=== PATIENT | female | born 1970 | race American Indian/Alaskan Native ===

== ENCOUNTER 2016-08-10 07:25 | Emergency (ER) | payer OTHER ==
[2016-08-10 07:29] VITALS: BP 131/72; PULSE 84; RESP 18; TEMP 98.8; O2SAT 100; BMI 28.8
[2016-08-10] MEDS ORDERED: Oxycodone/Acetaminophen 5/325 mg Tab PO STA (07:37)
--- NOTE | 2016-08-10 07:38 | ED PDOC ---
Arrival/HPI - General Chief Complaint: Trauma Time Seen by Provider: 08/10/16 07:34 Historian: Patient - History of Present Illness Narrative History of Present Illness (Text): 08/10/16 07:38 A 46 year old female presents to the emergency department complaining of right knee and hip pain after mechanical fall prior to arrival. Patient reports while taking out the trash her feet got tangled on a mop which caused her to fall and land on her right leg. Patient denies any other injuries, head trauma, headache , dizziness, neck pain, back pain, fever, nausea, vomiting, diarrhea, abdominal pain, chest pain, shortness of breath or any other complaints. PMD: Dr. Oneal Time/Duration: Prior to Arrival Symptom Course: Unchanged Quality: Other Context: Walking, Work Past Medical History - Provider Review Nursing Documentation Reviewed: Yes - Past History Past History: No Previous - Infectious Disease Hx of Infectious Diseases: None - Tetanus Immunization Tetanus Immunization: Unknown - Reproductive Menopause: No - Cardiac Hx Cardiac Disorders: No - Pulmonary Hx Respiratory Disorders: No - Neurological Hx Neurological Disorder: No - HEENT Hx HEENT Disorder: No - Renal Hx Renal Disorder: No - Endocrine/Metabolic Hx Endocrine Disorders: No - Hematological/Oncological Hx Blood Disorders: Yes Hx Anemia: Yes Hx Blood Transfusions: No - Integumentary Hx Dermatological Disorder: No - Musculoskeletal/Rheumatological Hx Musculoskeletal Disorders: Yes Hx Back Pain: Yes - Gastrointestinal Hx Gastrointestinal Disorders: No - Genitourinary/Gynecological Hx Genitourinary Disorders: No - Psychiatric Hx Psychophysiologic Disorder: No Hx Substance Use: No - Surgical History Hx Section: Yes (x 3) Hx Orthopedic Surgery: Yes (right ankle and rt thumb) - Anesthesia Hx Anesthesia: Yes Hx Anesthesia Reactions: Yes (panic attack) Hx Malignant Hyperthermia: No - Suicidal Assessment Feels Threatened In Home Enviroment: No Family/Social History - Physician Review Nursing Documentation Reviewed: Yes Family/Social History: No Known Family HX Smoking Status: Heavy Smoker > 10 Cigarettes Daily Hx Alcohol Use: Yes Frequency of alcohol use: Socially Hx Substance Use: No Hx Substance Use Treatment: No Allergies/Home Meds Allergies/Adverse Reactions: Allergies No Known Allergies Allergy (Verified 04/23/16 13:43) Home Medications: Home Meds Medication Instructions Recorded Confirmed Ibuprofen [Motrin Tab] 800 mg PO Q6H PRN 08/10/16 08/10/16 Review of Systems - Physician Review All systems were reviewed & negative as marked: Yes - Review of Systems Constitutional: absent: Fevers Respiratory: absent: SOB Cardiovascular: absent: Chest Pain Gastrointestinal: absent: Abdominal Pain, Diarrhea, Nausea, Vomiting Musculoskeletal: Other (Right knee and hip pain). absent: Back Pain, Neck Pain Neurological: absent: Headache, Dizziness Physical Exam Vital Signs Reviewed: Yes Vital Signs Temp Pulse Resp BP Pulse Ox 08/10/16 07:26 98.8 F 84 18 131/72 100 Temperature: Afebrile Blood Pressure: Normal Pulse: Regular Respiratory Rate: Normal Appearance: Positive for: Well-Appearing, Non-Toxic, Comfortable Pain Distress: None Mental Status: Positive for: Alert and Oriented X 3 - Systems Exam Head: Present: Atraumatic, Normocephalic Pupils: Present: PERRL Extroacular Muscles: Present: EOMI Conjunctiva: Present: Normal Mouth: Present: Moist Mucous Membranes Neck: Present: Normal Range of Motion Respiratory/Chest: Present: Clear to Auscultation, Good Air Exchange. No: Respiratory Distress, Accessory Muscle Use Cardiovascular: Present: Regular Rate and Rhythm, Normal S1, S2. No: Murmurs Abdomen: Present: Normal Bowel Sounds. No: Tenderness, Distention, Peritoneal Signs Back: Present: Normal Inspection Upper Extremity: Present: Normal Inspection. No: Cyanosis, Edema Lower Extremity: Present: NORMAL PULSES, Normal ROM, Tenderness (Right knee and hip tenderness to palpation), Swelling (Right knee and hip swelling), Neurovascularly Intact. No: Edema, CALF TENDERNESS, Erythema, Deformity, Temperature Abnormalties Neurological: Present: GCS=15, CN II-XII Intact, Speech Normal Skin: Present: Warm, Dry, Normal Color. No: Rashes Psychiatric: Present: Alert, Oriented x 3, Normal Insight, Normal Concentration Medical Decision Making ED Course and Treatment: 08/10/16 07:38 Impression: A 46 year old female with right knee and hip pain after mechanical fall Plan: -- Right femur xray -- Right hip xray -- Right knee xray -- Percocet -- Reassess and disposition Progress Notes: Report Date : 08/10/2016 09:41:34 PROCEDURE: Right Hip and pelvis Radiographs. Dictator : Amrik Boston MD IMPRESSION: Negative study Report Date : 08/10/2016 09:42:28 PROCEDURE: Right Femur Radiographs. Dictator : Amrik Boston MD IMPRESSION: Unremarkable radiographs of the right femur. Report Date : 08/10/2016 09:42:49 PROCEDURE: Right Knee Radiographs. Dictator : Amrik Boston MD IMPRESSION: Normal radiographs of the right knee. - RAD Interpretation Radiology Orders: 08/10/16 07:37 FEMUR MIN 2 VIEWS RT [RAD] Stat HIP MIN 2V W/ PELVIS RT [RAD] Stat KNEE RIGHT 2 VIEWS (AP & LAT) [RAD] Stat - Medication Orders Current Medication Orders: Discontinued Medications Oxycodone/Acetaminophen (Percocet 5/325 Mg Tab) 2 tab PO STAT STA Stop: 08/10/16 07:38 Last Admin: 08/10/16 07:50 Dose: 2 TAB - Scribe Statement The provider has reviewed the documentation as recorded by the Scribe Yvonne Ribera Provider Scribe Attestation: All medical record entries made by the Scribe were at my direction and personally dictated by me. I have reviewed the chart and agree that the record accurately reflects my personal performance of the history, physical exam, medical decision making, and the department course for this patient. I have also personally directed, reviewed, and agree with the discharge instructions and disposition. Disposition/Present on Arrival - Present on Arrival Any Indicators Present on Arrival: No History of DVT/PE: No History of Uncontrolled Diabetes: No Urinary Catheter: No History of Decub. Ulcer: No History Surgical Site Infection Following: None - Disposition Have Diagnosis and Disposition been Completed?: Yes Diagnosis: Hip sprain, Knee sprain Disposition: HOME/ ROUTINE Disposition Time: 09:40 Patient Problems: Current Active Problems Problem Status Diagnosed Hip sprain Acute Knee sprain Acute Condition: STABLE Discharge Instructions (ExitCare): Knee Sprain (ED), Hip Sprain (ED) Additional Instructions: please follow up with pmd/clinic and specialist. return to er with worsening symptoms or concerns. Prescriptions: Naproxen 500 mg PO BID PRN #14 tab PRN Reason: Pain, Mild (1-3) Referrals: Bronwyn Oneal MD [Primary Care Provider] - Follow up with primary Amrik Rose DO [Staff Provider] - Follow up with primary
--- NOTE | 2016-08-10 09:43 | RAD ---
PROCEDURE: Right Hip and pelvis Radiographs. HISTORY: trauma COMPARISON: None. FINDINGS: BONES: Normal. No fracture. JOINTS: Normal. SOFT TISSUES: Normal. OTHER FINDINGS: None. IMPRESSION: Negative study
--- NOTE | 2016-08-10 09:44 | RAD ---
PROCEDURE: Right Femur Radiographs. HISTORY: trauma COMPARISON: None. TECHNIQUE: AP and Lateral Radiographs of the right femur. FINDINGS: FEMUR: Normal. No fracture. SOFT TISSUES: Normal. OTHER FINDINGS: None. IMPRESSION: Unremarkable radiographs of the right femur.
--- NOTE | 2016-08-10 09:44 | RAD ---
PROCEDURE: Right Knee Radiographs. HISTORY: trauma COMPARISON: None. FINDINGS: BONES: Normal. No fracture. JOINTS: Normal. No osteoarthritis. JOINT EFFUSION: None. OTHER FINDINGS: None. IMPRESSION: Normal radiographs of the right knee.
== END 2016-08-10 09:57 | disposition home or self-care (01) ==
LOC: ED 07:25
DX: S73.101A Unspecified sprain of right hip, initial encounter (principal); S83.91XA Sprain of unspecified site of right knee, initial encounter; W01.0XXA Fall on same level from slipping, tripping and stumbling without subsequent striking against object, initial encounter; Y93.89 Activity, other specified; Y92.89 Other specified places as the place of occurrence of the external cause; Y99.0 Civilian activity done for income or pay

== ENCOUNTER 2016-09-27 08:24 | Emergency (ER) | payer OTHER ==
[2016-09-27 08:47] VITALS: TEMP 98.6; O2SAT 100; BMI 29.2
--- NOTE | 2016-09-27 09:27 | ED PDOC ---
Arrival/HPI - General Chief Complaint: Upper Extremity Problem/Injury Time Seen by Provider: 09/27/16 09:13 Historian: Patient - History of Present Illness Narrative History of Present Illness (Text): 09/27/16 09:23 46 year old female presents to the emergency department with right wrist pain since waking up this morning. 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 She states she iced it and took Ibuprofen with no relief. No other complaints. PMD: Dr. Oneal Time/Duration: 24 hours Symptom Onset: Sudden Symptom Course: Unchanged Associated Symptoms (Text): None Past Medical History - Provider Review Nursing Documentation Reviewed: Yes - Past History Past History: No Previous - Infectious Disease Hx of Infectious Diseases: None - Tetanus Immunization Tetanus Immunization: Unknown - Cardiac Hx Cardiac Disorders: No - Pulmonary Hx Respiratory Disorders: No - Neurological Hx Neurological Disorder: No - HEENT Hx HEENT Disorder: No - Renal Hx Renal Disorder: No - Endocrine/Metabolic Hx Endocrine Disorders: No - Hematological/Oncological Hx Blood Disorders: Yes Hx Anemia: Yes Hx Blood Transfusions: No - Integumentary Hx Dermatological Disorder: No - Musculoskeletal/Rheumatological Hx Musculoskeletal Disorders: Yes Hx Back Pain: Yes - Gastrointestinal Hx Gastrointestinal Disorders: No - Genitourinary/Gynecological Hx Genitourinary Disorders: No - Psychiatric Hx Psychophysiologic Disorder: No Hx Substance Use: No - Surgical History Hx Section: Yes (x 3) Hx Orthopedic Surgery: Yes (right ankle and rt thumb) - Anesthesia Hx Anesthesia: Yes Hx Anesthesia Reactions: Yes (panic attack) Hx Malignant Hyperthermia: No - Suicidal Assessment Feels Threatened In Home Enviroment: No Family/Social History - Physician Review Nursing Documentation Reviewed: Yes Family/Social History: Unknown Family HX Smoking Status: Heavy Smoker > 10 Cigarettes Daily Hx Alcohol Use: Yes Frequency of alcohol use: Socially Hx Substance Use: No Hx Substance Use Treatment: No Allergies/Home Meds Allergies/Adverse Reactions: Allergies No Known Allergies Allergy (Verified 09/27/16 08:46) Home Medications: Home Meds Medication Instructions Recorded Confirmed Ibuprofen [Motrin Tab] 800 mg PO Q6H PRN 08/10/16 09/27/16 Review of Systems - Review of Systems Musculoskeletal: Other (Right wrist pain) Neurological: absent: Headache, Dizziness Physical Exam Vital Signs Reviewed: Yes Vital Signs Temp Pulse Resp BP Pulse Ox 09/27/16 11:15 82 16 101/80 100 09/27/16 08:42 98.6 F 85 18 99/76 L 100 Temperature: Afebrile Blood Pressure: Normal Pulse: Regular Respiratory Rate: Normal Appearance: Positive for: Well-Appearing, Non-Toxic, Uncomfortable Pain Distress: Mild Mental Status: Positive for: Alert and Oriented X 3 - Systems Exam Upper Extremity: Present: Neurovascularly Intact, Other (Right wrist: Tenderness , Swelling. Right hand: Tenderness to 5th metacarpal, Decreased ROM secondary to pain. ) Neurological: Present: GCS=15, CN II-XII Intact, Speech Normal Skin: Present: Warm, Dry, Normal Color. No: Rashes Psychiatric: Present: Alert, Oriented x 3, Normal Insight, Normal Concentration Medical Decision Making ED Course and Treatment: Impression: 46 year old female presents to the emergency department with right wrist pain since waking up this morning. 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 X-ray Right Wrist Pit Furnace Melter: Amrik Boston MD IMPRESSION: Normal right wrist radiographs. Patient feels better. XRays negative. Placed patient in a velcro wrist splint. Advised her to follow up with her primary care doctor, continue treatment with Motrin and ice packs. - RAD Interpretation Radiology Orders: 09/27/16 09:22 HAND RIGHT 3 VIEWS [RAD] Stat WRIST, RIGHT 3 VIEWS [RAD] Stat - Medication Orders Current Medication Orders: Discontinued Medications Ibuprofen (Motrin Tab) 600 mg PO STAT STA Stop: 09/27/16 09:23 Last Admin: 09/27/16 09:29 Dose: 600 mg - Scribe Statement The provider has reviewed the documentation as recorded by the Kelly Monzon Provider Scribe Attestation: All medical record entries made by the Scribe were at my direction and personally dictated by me. I have reviewed the chart and agree that the record accurately reflects my personal performance of the history, physical exam, medical decision making, and the department course for this patient. I have also personally directed, reviewed, and agree with the discharge instructions and disposition. Disposition/Present on Arrival - Present on Arrival Any Indicators Present on Arrival: No History of DVT/PE: No History of Uncontrolled Diabetes: No Urinary Catheter: No History of Decub. Ulcer: No History Surgical Site Infection Following: None - Disposition Have Diagnosis and Disposition been Completed?: Yes Diagnosis: Tendonitis Disposition: HOME/ ROUTINE Disposition Time: 11:20 Patient Plan: Discharge Condition: IMPROVED Discharge Instructions (ExitCare): Tendinitis (ED) Additional Instructions: Ms Hu, thank you for letting us take care of you today. Your provider was Dr. Yuan. You were treated for Wrist Tendonitis. The emergency medical care you received today was directed at your acute symptoms. If you were prescribed any medication, please fill it and take as directed. It may take several days for your symptoms to resolve. Return to the Emergency Department if your symptoms worsen, do not improve, or if you have any other problems. Please contact your doctor or call one of the physicians/clinics you have been referred to that are listed on the Patient Visit Information form that is included in your discharge packet. Bring any paperwork you were given at discharge with you along with any medications you are taking to your follow up visit. Our treatment cannot replace ongoing medical care by a primary care provider (PCP) outside of the emergency department. Thank you for allowing the [id number] team to be part of your care today. If you had an X-Ray or CT scan: A Radiologist will review the ED reading if any change in treatment is needed we will contact you. If you had a blood, urine, or wound culture: It will take several days for the results, if any change in treatment is needed we will contact you. If you had an STI test: It will take 48 hours for the results. Please call after 1 week if you have not heard back. Prescriptions: Cyclobenzaprine [Flexeril] 5 mg PO Q8 PRN #10 tab PRN Reason: Muscle Spasm Ibuprofen [Motrin] 600 mg PO Q6 PRN #30 tab PRN Reason: Pain, Moderate (4-7) Referrals: Erma Oneal MD [Primary Care Provider] - Follow up with primary Forms: [employer] ([place]), WORK NOTE
--- NOTE | 2016-09-27 10:03 | RAD ---
PROCEDURE: Right Hand Radiographs. HISTORY: pain r/o fx COMPARISON: None. FINDINGS: BONES: Normal. No fracture. JOINTS: Normal. No osteoarthritic changes. SOFT TISSUES: Normal. OTHER FINDINGS: None. IMPRESSION: Normal right hand radiographs.
--- NOTE | 2016-09-27 10:17 | RAD ---
PROCEDURE: Right Wrist Radiographs. HISTORY: pain r/o fx COMPARISON: None. FINDINGS: BONES: Normal. No fracture. JOINTS: Normal. No dislocation. SOFT TISSUES: Normal. OTHER FINDINGS: None. IMPRESSION: Normal right wrist radiographs.
[2016-09-27 11:16] VITALS: BP 101/80; PULSE 82; RESP 16
== END 2016-09-27 11:20 | disposition home or self-care (01) ==
LOC: ED 08:24
DX: M77.9 Enthesopathy, unspecified (principal)

== ENCOUNTER 2017-01-08 12:31 | Emergency (ER) | payer OTHER ==
[2017-01-08 12:31] VITALS: BMI 29.2
[2017-01-08 12:38] VITALS: RESP 18; TEMP 98.3; O2SAT 99
--- NOTE | 2017-01-08 12:47 | ED PDOC ---
Arrival/HPI - General Chief Complaint: Back Pain Time Seen by Provider: 01/08/17 12:37 Historian: Patient - History of Present Illness Narrative History of Present Illness (Text): The patient is a 46yo female, presents to the Emergency department for evaluation of left lower back pain, worsening since this morning. The patient reports she had a fall last year after which she was informed of two pinched nerves in her back; patient states she has had lower back pain for the past year but has been able to manage the pain by taking motrin as needed. 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 Patient denies any urinary or bowel incontinence/retention, numbness or tingling. She offers no additional medical complaints. Time/Duration: 24 hours Symptom Onset: Gradual Symptom Course: Worsening Past Medical History - Provider Review Nursing Documentation Reviewed: Yes - Past History Past History: No Previous - Infectious Disease Hx of Infectious Diseases: None - Tetanus Immunization Tetanus Immunization: Unknown - Cardiac Hx Cardiac Disorders: No - Pulmonary Hx Respiratory Disorders: No - Neurological Hx Neurological Disorder: No - HEENT Hx HEENT Disorder: No - Renal Hx Renal Disorder: No - Endocrine/Metabolic Hx Endocrine Disorders: No - Hematological/Oncological Hx Blood Disorders: Yes Hx Anemia: Yes Hx Blood Transfusions: No - Integumentary Hx Dermatological Disorder: No - Musculoskeletal/Rheumatological Hx Musculoskeletal Disorders: Yes Hx Back Pain: Yes - Gastrointestinal Hx Gastrointestinal Disorders: No - Genitourinary/Gynecological Hx Genitourinary Disorders: No - Psychiatric Hx Psychophysiologic Disorder: No Hx Substance Use: No - Surgical History Hx Section: Yes (x 3) Hx Orthopedic Surgery: Yes (right ankle and rt thumb) - Anesthesia Hx Anesthesia: Yes Hx Anesthesia Reactions: Yes (panic attack) Hx Malignant Hyperthermia: No - Suicidal Assessment Feels Threatened In Home Enviroment: No Family/Social History - Physician Review Nursing Documentation Reviewed: Yes Family/Social History: No Known Family HX Smoking Status: Heavy Smoker > 10 Cigarettes Daily Hx Alcohol Use: No Hx Substance Use: No Hx Substance Use Treatment: No Allergies/Home Meds Allergies/Adverse Reactions: Allergies No Known Allergies Allergy (Verified 01/08/17 12:37) Home Medications: Home Meds Medication Instructions Recorded Confirmed Ibuprofen [Motrin Tab] 800 mg PO Q6H PRN 08/10/16 01/08/17 Review of Systems - Physician Review All systems were reviewed & negative as marked: Yes - Review of Systems Constitutional: Normal. absent: Fevers Eyes: Normal Respiratory: Normal Cardiovascular: Normal. absent: Chest Pain Musculoskeletal: Back Pain (left lower back), Other (left leg pain) Neurological: Normal Psychiatric: Normal Physical Exam - Physical Exam Narrative Physical Exam (Text): Constitutional: Uncomfortable. Head: Normocephalic. Atraumatic. Eyes: PERRL. Neck: Supple. Back: Left lumbar tenderness, no midline tenderness. Musculoskeletal: No tenderness or swelling of extremities. Neurologic: Alert, no focal deficit. 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 Patient made aware of this. Will prescribe Robaxin, f/u with primary care. - Medication Orders Current Medication Orders: Discontinued Medications Tramadol HCl (Ultram) 50 mg PO STAT STA Stop: 01/08/17 12:55 Last Admin: 01/08/17 13:04 Dose: 50 mg [facility] Pain Assessment Document 01/08/17 13:04 EQ (Rec: 01/08/17 13:04 EQ [facility] [id number]) Pain Reassessment Is this a pain reassessment? No Sleep Is patient sleeping during reassessment? No Presence of Pain Presence of Pain Yes - Scribe Statement The provider has reviewed the documentation as recorded by the Kelly Caldera Provider Attestation: All medical record entries made by the Kelly were at my direction and personally dictated by me. I have reviewed the chart and agree that the record accurately reflects my personal performance of the history, physical exam, medical decision making, and the department course for this patient. I have also personally directed, reviewed, and agree with the discharge instructions and disposition. Disposition/Present on Arrival - Present on Arrival Any Indicators Present on Arrival: No History of DVT/PE: No History of Uncontrolled Diabetes: No Urinary Catheter: No History of Decub. Ulcer: No History Surgical Site Infection Following: None - Disposition Have Diagnosis and Disposition been Completed?: Yes Diagnosis: Back pain Disposition: HOME/ ROUTINE Disposition Time: 13:34 Patient Plan: Discharge Condition: STABLE Discharge Instructions (ExitCare): Chronic Back Pain (ED) Prescriptions: Methocarbamol [Robaxin-750] 1 tab PO Q8H #12 tablet Referrals: Bronwyn Oneal MD [Primary Care Provider] - Follow up with primary Forms: [employer] (Bengali)
[2017-01-08 13:40] VITALS: BP 121/79; PULSE 89
== END 2017-01-08 13:39 | disposition home or self-care (01) ==
LOC: ED 12:31
DX: M54.5 Low back pain (principal)

== ENCOUNTER 2017-05-21 10:16 | Observation (INO) | payer OTHER ==
[2017-05-21] MEDS ORDERED: Sodium Chloride 0.9% 1,000 ML IV STA ×2 (10:48→15:09)
--- NOTE | 2017-05-21 11:29 | ED PDOC ---
Arrival/HPI - General Chief Complaint: Abdominal Pain Time Seen by Provider: 05/21/17 10:33 Historian: Patient - History of Present Illness Narrative History of Present Illness (Text): 05/21/17 11:19 47-year-old female presents today with a sudden onset of epigastric and periumbilical abdominal pain that started about 45 minutes prior to arrival. Patient states the pain is sharp and stabbing and located in the midabdomen. Patient states the pain is associated with nausea and vomiting. Denies diarrhea. Patient denies chest pain or shortness of breath. Patient states she has a history of chronic back pain so she is currently having some back pain. Patient denies radiation of the pain. She denies urinary symptoms. Patient states she is currently menstruating. Patient states her granddaughter was sick yesterday. Patient denies cough. No other complaints. Time/Duration: Other (45 minutes) Symptom Onset: Sudden Symptom Course: Unchanged Quality: Stabbing Severity Level: 9 Past Medical History - Provider Review Nursing Documentation Reviewed: Yes - Travel History Have you recently traveled outside [place] w/in the past 3 mons?: No - Past History Past History: No Previous - Infectious Disease Hx of Infectious Diseases: None - Tetanus Immunization Tetanus Immunization: Unknown - Reproductive Menopause: No - Cardiac Hx Cardiac Disorders: No - Pulmonary Hx Respiratory Disorders: No - Neurological Hx Neurological Disorder: No - HEENT Hx HEENT Disorder: No - Renal Hx Renal Disorder: No - Endocrine/Metabolic Hx Endocrine Disorders: No - Hematological/Oncological Hx Blood Disorders: Yes Hx Anemia: Yes Hx Blood Transfusions: No - Integumentary Hx Dermatological Disorder: No - Musculoskeletal/Rheumatological Hx Musculoskeletal Disorders: Yes Hx Back Pain: Yes - Gastrointestinal Hx Gastrointestinal Disorders: No - Genitourinary/Gynecological Hx Genitourinary Disorders: No - Psychiatric Hx Psychophysiologic Disorder: No Hx Substance Use: No - Surgical History Hx Section: Yes (x 3) Hx Orthopedic Surgery: Yes (right ankle and rt thumb) - Anesthesia Hx Anesthesia: Yes Hx Anesthesia Reactions: Yes (panic attack) Hx Malignant Hyperthermia: No - Suicidal Assessment Feels Threatened In Home Enviroment: No Family/Social History - Physician Review Nursing Documentation Reviewed: Yes Family/Social History: Unknown Family HX Smoking Status: Heavy Smoker > 10 Cigarettes Daily Hx Alcohol Use: No Hx Substance Use: No Hx Substance Use Treatment: No Allergies/Home Meds Allergies/Adverse Reactions: Allergies No Known Allergies Allergy (Verified 05/21/17 10:25) Home Medications: Home Meds Medication Instructions Recorded Confirmed Ibuprofen [Motrin Tab] 800 mg PO Q6H PRN 08/10/16 05/21/17 Review of Systems - Review of Systems Constitutional: absent: Fatigue, Fevers Respiratory: absent: SOB, Cough Cardiovascular: absent: Chest Pain, Palpitations Gastrointestinal: Abdominal Pain, Nausea, Vomiting. absent: Constipation, Diarrhea Genitourinary Female: absent: Dysuria, Frequency, Hematuria Musculoskeletal: absent: Arthralgias, Neck Pain Skin: absent: Rash, Pruritis Neurological: absent: Headache, Dizziness Psychiatric: absent: Anxiety, Depression, Suicidal Ideation Physical Exam Vital Signs Reviewed: Yes Vital Signs Temp Pulse Resp BP Pulse Ox 05/21/17 15:13 106 H 18 111/49 L 99 05/21/17 14:33 79 18 155/65 H 96 05/21/17 11:50 97.8 F 85 18 159/67 H 96 05/21/17 11:11 97.6 F 91 H 18 114/73 100 05/21/17 10:23 98.2 F 82 18 129/83 98 Temperature: Afebrile Blood Pressure: Normal Pulse: Regular Respiratory Rate: Normal Appearance: Positive for: Well-Appearing, Non-Toxic Pain Distress: Moderate Mental Status: Positive for: Alert and Oriented X 3 - Systems Exam Head: Present: Atraumatic Mouth: Present: Moist Mucous Membranes Neck: Present: Normal Range of Motion Respiratory/Chest: Present: Clear to Auscultation, Good Air Exchange. No: Respiratory Distress, Accessory Muscle Use Cardiovascular: Present: Regular Rate and Rhythm, Normal S1, S2. No: Murmurs Abdomen: Present: Tenderness (+ epigastric and periumbilical abdominal tenderness), Normal Bowel Sounds. No: Distention, Peritoneal Signs Back: Present: Normal Inspection. No: CVA Tenderness, Midline Tenderness, Paraspinal Tenderness Upper Extremity: Present: Normal ROM Lower Extremity: Present: Normal ROM Neurological: Present: GCS=15, Speech Normal Skin: Present: Warm, Dry, Normal Color. No: Rashes Psychiatric: Present: Alert, Oriented x 3 Medical Decision Making ED Course and Treatment: 05/21/17 11:54 Patient is nontoxic well appearing with stable vital signs presenting with severe abdominal pain with nausea and vomiting. pt with multiple episodes of vomiting c/o severe mid abdominal pain and back pain pt given zofran and pepcid. pt given 1L NS iv bolus. CBC wnl CMP cl; 11 Amylase 127 Lipase wnl Urinalysis: + blood, + nitrates EKG: NSR at 81 b/m no st elevations. qtc 420. CAT scan: FINDINGS: CT ANGIOGRAPHY OF THE CHEST WITH & WITHOUT CONTRAST: AORTA (CHEST AND ABDOMEN): The thoracic and abdominal aorta are unremarkable, without aneurysm, dissection or rupture. No intramural thrombus identified in the thoracic aorta on the non-contrast ct of the chest. The celiac axis, superior mesenteric artery, inferior mesenteric artery and the renal arteries are widely patent. The pelvic arteries are unremarkable. LUNGS: Clear. No nodule, mass or consolidation. MEDIASTINUM: Unremarkable. Normal caliber aorta and pulmonary arterial trunk. No aortic dissection. Normal size heart. LYMPH NODES: Unremarkable. PLEURA: Unremarkable. No pneumothorax. No pleural fluid. BONES: Unremarkable. OTHER FINDINGS: None. CT ANGIOGRAPHY OF THE ABDOMEN AND PELVIS WITH CONTRAST: LIVER: Nonspecific 1.2 cm low-density lesion at dome of left hepatic lobe, medial segment. No other hepatic mass. Nodular dystrophic calcification either dome of right hepatic lobe or pleural-based at right lung base. No biliary dilatation. Smooth contour. GALLBLADDER AND BILE DUCTS: Unremarkable. PANCREAS: Unremarkable. No gross lesion or ductal dilatation. SPLEEN: Unremarkable. ADRENALS: Unremarkable. No mass. KIDNEYS AND URETERS: Bilateral low-density renal masses consistent with renal cysts. Right upper pole, 1.9 cm. Right lower pole, 4.2 cm. Left upper pole, 2.4 cm. Left lower pole, 3.8 cm and 2.6 cm. These have all increased slightly in size since prior abdominal pelvic CT examination of 02/05/2013. . No calculus. No hydronephrosis. VASCULATURE: Unremarkable. No aortic aneurysm. STOMACH AND BOWEL: Unremarkable. No obstruction. No gross mural thickening. APPENDIX: Normal appendix. PERITONEUM: Unremarkable. No free fluid. No free air. LYMPH NODES: Unremarkable. No enlarged lymph nodes. BLADDER: Unremarkable. REPRODUCTIVE: Normal uterus BONES: No acute fracture. OTHER FINDINGS: None. IMPRESSION: No evidence of thoracic or abdominal aortic dissection or aneurysm. No acute findings. Incidental bilateral renal cysts. Nonspecific 1.2 cm low-density lesion in the dome of the left hepatic lobe. Patient reassessment: pt with continued nausea/vomiting despite medications; additional dose of zofran given. pt now c/o returned abd pain; morphine given. after administration of morphine; pt c/o shortness of breath, not feeling right and feeling of throat closing pt given solumedrol and benadryl 50mg IV. pt reassessment; lungs cta bilaterally, airway patient; breathing has improved ; pain has improved, pt with RUQ tenderness. nausea remains. Discussed all results with patient in depth. pt has vomited 6-7 in ER despite multiple doses of nausea medications; will admit observational status for intractable vomiting, abdominal pain. case discussed with dr. Bette Nguyen; accepts observational status admission to med/ surg. all aspects of this case were discussed the attending of record. Impression: intractable vomiting, abdominal pain admit observational status to med/surg - Lab Interpretations Lab Results: 05/21/17 11:40 05/21/17 13:00 Lab Results 05/21/17 13:40: Influenza Typ A,B (EIA) Negative for flu a/b 05/21/17 13:00: Sodium 143, Potassium 4.3, Chloride 111 H, Carbon Dioxide 25, Anion Gap 12, BUN 19, Creatinine 0.7, Est GFR ( Amer) > 60, Est GFR (Non- Af Amer) > 60, Random Glucose 92, Calcium 9.7, Total Bilirubin 0.7, AST 21, ALT 26, Alkaline Phosphatase 65, Total Protein 7.1, Albumin 3.9, Globulin 3.2, Albumin/Globulin Ratio 1.2, Amylase 127 H, Lipase 215 05/21/17 11:40: WBC 10.3, RBC 4.34, Hgb 12.2, Hct 37.5, MCV 86.4, MCH 28.1, MCHC 32.5, RDW 14.2, Plt Count 303, MPV 10.2, Gran % 83.4 H, Lymph % (Auto) 13.2 L, [place] % (Auto) 2.7, Eos % (Auto) 0.6 L, Baso % (Auto) 0.1, Gran # 8.58 H , Lymph # 1.4, [place] # 0.3, Eos # 0.1, Baso # 0.01 05/21/17 11:34: Urine Color Light red, Urine Appearance Cloudy, Urine pH 6.0, Ur Specific Linch >= 1.030, Urine Protein 100 H, Urine Glucose (UA) Negative, Urine Ketones Trace H, Urine Blood Large H, Urine Nitrate Positive H, Urine Bilirubin Small H, Urine Urobilinogen 0.2, Ur Leukocyte Esterase Negative, Urine RBC Tntc, Urine WBC 0 - 2, Ur Epithelial Cells 6 - 8, Urine Bacteria Mod - RAD Interpretation Radiology Orders: 05/21/17 10:48 ANGIOGRAPHY DISECTION PROTOCOL [CT] Stat CHEST PORTABLE [RAD] Stat - Medication Orders Current Medication Orders: Discontinued Medications Diphenhydramine HCl (Benadryl) 50 mg IVP STAT STA Stop: 05/21/17 15:31 Last Admin: 05/21/17 15:37 Dose: 50 mg IVP Administration Document 05/21/17 15:37 OCS (Rec: 05/21/17 15:37 [id number]) Charges for Administration # of IVP Administrations 1 Famotidine (Pepcid) 20 mg IVP STAT STA Stop: 05/21/17 11:20 Last Admin: 05/21/17 11:29 Dose: 20 mg IVP Administration Document 05/21/17 11:29 OCS (Rec: 05/21/17 11:29 [facility]CS [facility] [place] [id number]) Charges for Administration # of IVP Administrations 1 Sodium Chloride (Sodium Chloride 0.9%) 1,000 mls @ 999 mls/hr IV .Q1H1M STA Stop: 05/21/17 11:48 Last Admin: 05/21/17 11:29 Dose: 999 mls/hr eMAR Start Stop Document 05/21/17 11:29 OCS (Rec: 05/21/17 11:30 [id number]) Intravenous Solution Start Date 05/21/17 Start Time 11:29 End Date 05/21/17 End time 12:00 Total Infusion Time 31 Sodium Chloride (Sodium Chloride 0.9%) 1,000 mls @ 999 mls/hr IV .Q1H1M STA Stop: 05/21/17 16:09 Last Admin: 05/21/17 15:38 Dose: 999 mls/hr eMAR Start Stop Document 05/21/17 15:38 OCS (Rec: 05/21/17 15:38 [id number]) Intravenous Solution Start Date 05/21/17 Start Time 15:38 End Date 05/21/17 End time 16:39 Total Infusion Time 61 Methylprednisolone (Solu-Medrol) 125 mg IVP STAT STA Stop: 05/21/17 15:31 Last Admin: 05/21/17 15:37 Dose: Morphine Sulfate (Morphine) 4 mg IVP STAT STA Stop: 05/21/17 14:38 Last Admin: 05/21/17 15:05 Dose: 4 mg MAR Pain Assessment Document 05/21/17 15:05 OCS (Rec: 05/21/17 15:05 OCS [facility] [place] [id number]) Pain Reassessment Is this a pain reassessment? Yes Sleep Is patient sleeping during reassessment? No Presence of Pain Presence of Pain Yes Location Pain Location Body Site Abdomen Description Description Constant Intensity of Pain at present 8 Aggravating Factors ADL's IVP Administration Document 05/21/17 15:05 OCS (Rec: 05/21/17 15:05 OCS [facility] [place] [id number]) Charges for Administration # of IVP Administrations 1 Ondansetron HCl (Zofran Inj) 4 mg IVP STAT STA Stop: 05/21/17 10:49 Last Admin: 05/21/17 11:29 Dose: 4 mg IVP Administration Document 05/21/17 11:29 OCS (Rec: 05/21/17 11:29 OCS [facility] [id number]) Charges for Administration # of IVP Administrations 1 Ondansetron HCl (Zofran Inj) 4 mg IVP STAT STA Stop: 05/21/17 14:38 Last Admin: 05/21/17 15:05 Dose: 4 mg IVP Administration Document 05/21/17 15:05 OCS (Rec: 05/21/17 15:05 [id number]) Charges for Administration # of IVP Administrations 1 Disposition/Present on Arrival - Present on Arrival Any Indicators Present on Arrival: No History of DVT/PE: No History of Uncontrolled Diabetes: No Urinary Catheter: No History of Decub. Ulcer: No History Surgical Site Infection Following: None - Disposition Have Diagnosis and Disposition been Completed?: Yes Diagnosis: Intractable vomiting, Abdominal pain Disposition: HOSPITALIZED Disposition Time: 17:18 Patient Plan: Observation Patient Problems: Current Active Problems Problem Status Onset Abdominal pain Acute Intractable vomiting Acute Condition: FAIR Referrals: Bronwyn Oneal MD [Primary Care Provider] - Follow up with primary Forms: BDA (Syrian)
[2017-05-21 11:46] LABS: URINE BILIRUBIN SMALL (NEGATIVE); URINE BLOOD LARGE (NEGATIVE); URINE GLUCOSE (UA) NEGATIVE (NEGATIVE); URINE LEUKOCYTE ESTERASE NEGATIVE Leu/uL (NEGATIVE); URINE NITRATE POSITIVE (NEGATIVE); URINE PROTEIN 100 mg/dL (<30 mg/dL); URINE UROBILINOGEN 0.2 E.U./dL (<1 E.U./dL)
[2017-05-21 11:47] LABS: URINE APPEARANCE CLOUDY (CLEAR); URINE COLOR LIGHT RED (YELLOW)
[2017-05-21 11:51] LABS: BASO # 0.01 K/mm3 (0.0-2.0); BASO % 0.1 % (0.0-3.0); EOS # 0.1 (0.0-0.7); EOS % 0.6 % (1.5-5.0); GRAN # 8.58 (1.4-6.5); GRAN % 83.4 % (50.0-68.0); HEMOGLOBIN 12.2 g/dL (12.0-16.0); LYMPH # 1.4 (1.2-3.4); LYMPH % 13.2 % (22.0-35.0); MEAN CELL VOLUME 86.4 fl (80.0-105.0); MEAN CORPUSCULAR HEMOGLOBIN 28.1 pg (25.0-35.0); MEAN CORPUSCULAR HGB CONC 32.5 g/dl (31.0-37.0); MEAN PLATELET VOLUME 10.2 fl (7.0-11.0); MONO # 0.3 (0.1-0.6); MONO % 2.7 % (1.0-6.0); RBC 4.34 10^6/uL (3.5-6.1); RED CELL DISTRIBUTION WIDTH 14.2 % (11.5-14.5); WHITE BLOOD COUNT 10.3 10^3/ul (4.5-11.0)
[2017-05-21 11:55] LABS: URINE BACTERIA MOD (NEG); URINE RBC TNTC /hpf (0-2); URINE WBC 0 - 2 /hpf (0-6)
--- NOTE | 2017-05-21 12:27 | RAD ---
HISTORY: abd pain COMPARISON: 11/25/2014 FINDINGS: LUNGS: No active pulmonary disease. PLEURA: No significant pleural effusion identified, no pneumothorax apparent. CARDIOVASCULAR: Normal. OSSEOUS STRUCTURES: No significant abnormalities. VISUALIZED UPPER ABDOMEN: Normal. OTHER FINDINGS: None. IMPRESSION: No active disease.
[2017-05-21 13:36] LABS: ALB/GLOB RATIO 1.2 (1.1-1.8); ALBUMIN 3.9 g/dL (3.0-4.8); ALT/SGPT 26 U/L (7-56); AMYLASE 127 U/L (35-125); AST/SGOT 21 U/L (14-36); BLOOD UREA NITROGEN 19 mg/dL (7-21); CALCIUM 9.7 mg/dL (8.4-10.5); GFR AFRICAN-AMERICAN > 60; GFR NON-AFRICAN AMERICAN > 60; LIPASE 215 U/L (23-300)
[2017-05-21] MEDS ORDERED: Morphine 4 mg/ml ISec IVP STA (14:37)
--- NOTE | 2017-05-21 14:37 | CT ---
PROCEDURE: CT Angiography Chest, Abdomen and Pelvis with and without intravenous contrast HISTORY: abd pain COMPARISON: CT abdomen/ pelvis 02/05/2013 TECHNIQUE: Contiguous axial images of the chest, abdomen and pelvis were obtained in the phase of aortic enhancement. A noncontrast enhanced CT of the chest was also obtained to evaluate for possible intramural thrombus. Coronal and sagittal reformats were generated. IV dose administered: 150 mL Omnipaque 350 Radiation dose: Total exam DLP = 1101.37 mGy-cm. This CT exam was performed using one or more of the following dose reduction techniques: Automated exposure control, adjustment of the mA and/or kV according to patient size, and/or use of iterative reconstruction technique. FINDINGS: CT ANGIOGRAPHY OF THE CHEST WITH & WITHOUT CONTRAST: AORTA (CHEST AND ABDOMEN): The thoracic and abdominal aorta are unremarkable, without aneurysm, dissection or rupture. No intramural thrombus identified in the thoracic aorta on the non-contrast ct of the chest. The celiac axis, superior mesenteric artery, inferior mesenteric artery and the renal arteries are widely patent. The pelvic arteries are unremarkable. LUNGS: Clear. No nodule, mass or consolidation. MEDIASTINUM: Unremarkable. Normal caliber aorta and pulmonary arterial trunk. No aortic dissection. Normal size heart. LYMPH NODES: Unremarkable. PLEURA: Unremarkable. No pneumothorax. No pleural fluid. BONES: Unremarkable. OTHER FINDINGS: None. CT ANGIOGRAPHY OF THE ABDOMEN AND PELVIS WITH CONTRAST: LIVER: Nonspecific 1.2 cm low-density lesion at dome of left hepatic lobe, medial segment. No other hepatic mass. Nodular dystrophic calcification either dome of right hepatic lobe or pleural-based at right lung base. No biliary dilatation. Smooth contour. GALLBLADDER AND BILE DUCTS: Unremarkable. PANCREAS: Unremarkable. No gross lesion or ductal dilatation. SPLEEN: Unremarkable. ADRENALS: Unremarkable. No mass. KIDNEYS AND URETERS: Bilateral low-density renal masses consistent with renal cysts. Right upper pole, 1.9 cm. Right lower pole, 4.2 cm. Left upper pole, 2.4 cm. Left lower pole, 3.8 cm and 2.6 cm. These have all increased slightly in size since prior abdominal pelvic CT examination of 02/05/2013. . No calculus. No hydronephrosis. VASCULATURE: Unremarkable. No aortic aneurysm. STOMACH AND BOWEL: Unremarkable. No obstruction. No gross mural thickening. APPENDIX: Normal appendix. PERITONEUM: Unremarkable. No free fluid. No free air. LYMPH NODES: Unremarkable. No enlarged lymph nodes. BLADDER: Unremarkable. REPRODUCTIVE: Normal uterus BONES: No acute fracture. OTHER FINDINGS: None. IMPRESSION: No evidence of thoracic or abdominal aortic dissection or aneurysm. No acute findings. Incidental bilateral renal cysts. Nonspecific 1.2 cm low-density lesion in the dome of the left hepatic lobe.
[2017-05-21] MEDS ORDERED: DiphenhydrAMINE 50 mg/ml Inj IVP STA (15:30)
--- NOTE | 2017-05-21 17:57 | CP.PCM.CON ---
Past Patient History - Infectious Disease Hx of Infectious Diseases: None - Tetanus Immunizations Tetanus Immunization: Unknown - Past Social History Smoking Status: Heavy Smoker > 10 Cigarettes Daily - CARDIAC Hx Cardiac Disorders: No - PULMONARY Hx Respiratory Disorders: No - NEUROLOGICAL Hx Neurological Disorder: No - HEENT Hx HEENT Problems: No - RENAL Hx Chronic Kidney Disease: No - ENDOCRINE/METABOLIC Hx Endocrine Disorders: No - HEMATOLOGICAL/ONCOLOGICAL Hx Blood Disorders: Yes Hx Anemia: Yes Hx Blood Transfusions: No - INTEGUMENTARY Hx Dermatological Problems: No - MUSCULOSKELETAL/RHEUMATOLOGICAL Hx Musculoskeletal Disorders: Yes Hx Back Pain: Yes - GASTROINTESTINAL Hx Gastrointestinal Disorders: No - GENITOURINARY/GYNECOLOGICAL Hx Genitourinary Disorders: No - PSYCHIATRIC Hx Psychophysiologic Disorder: No Hx Substance Use: No - SURGICAL HISTORY Hx Section: Yes (x 3) Hx Orthopedic Surgery: Yes (right ankle and rt thumb) - ANESTHESIA Hx Anesthesia: Yes Hx Anesthesia Reactions: Yes (panic attack) Hx Malignant Hyperthermia: No Meds Allergies/Adverse Reactions: Allergies Allergy/AdvReac Type Severity Reaction Status Date / Time No Known Allergies Allergy Verified 05/21/17 10:25 Results - Vital Signs Recent Vital Signs: Last Vital Signs Temp 97.8 F 05/21/17 11:50 Pulse 94 H 05/21/17 17:47 Resp 18 05/21/17 17:47 BP 115/58 L 05/21/17 17:47 Pulse Ox 100 05/21/17 17:47 - Labs Result Diagrams: 05/21/17 11:40 05/21/17 13:00
--- NOTE | 2017-05-21 18:34 | CP.PCM.HP ---
<Janey Johnson - Last Filed: 05/21/17 18:25> History of Present Illness - History of Present Illness History of Present Illness: CC: Intractable vomting and abdominal pain Patient is a 47 y/o with pmh of chronic back pain, and anemia presenting with intractable vomiting and epigastric pain. 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 Patient felt nauseous along with the abdominal pain, then started to vomit. The vomitus was non bloody and non bilious. Patient states she vomited 5 times since being in the ED. States prior to today she was fine, woked up with her normal self. States she didn't eat breakfast. Denies eating anything new last night. Denies sick contact and recent travel. Last bowel movement was last night, states she goes regularly. Denies diarrhea. Patient states she was giving multiple zofran, thus the vomiting has currently receded. States the abdominal pain has also improved with pain meds. Patient was giving morphine in the ED and had a reaction to it, thus was giving Pepcid, solumedrol and Benadryl. Patient takes Motrin prn and a muscle relaxant for her back pain. Has been getting injection to her back as well. PMHx: As stated above PSHx: x3 Social: smokes cigarette since age of 14, occasional alcohol, denies illicit drug use. Home meds: Motrin prn and a stronger pain med ( patient doesn't remember the name). Allergy: NKDA FMHx: Mom at age of 77, had CHF and CAD, dad from pneumonia in his 60s , brother had colon cancer at age of 44. Present on Admission - Present on Admission Any Indicators Present on Admission: No History of DVT/PE: No History of Uncontrolled Diabetes: No Urinary Catheter: No Decubitus Ulcer Present: No Review of Systems - Constitutional Constitutional: Chills. absent: Fatigue, Fever, Frequent Falls, Headache, Increased Appetite, Malaise, Night Sweats, Sleep Apnea, Weight Loss, Weakness - EENT Eyes: absent: Pain Ears: absent: Dizziness Nose/Mouth/Throat: absent: Mouth Pain, Sore Throat - Cardiovascular Cardiovascular: absent: Chest Pain, Chest Pain at Rest, Claudication, Diaphoresis, Dyspnea, Edema, Irregular Heart Rhythm, Leg Edema, Leg Ulcers, Palpitations, Syncope - Respiratory Respiratory: Cough. absent: Dyspnea, Hemoptysis, Wheezing, Snoring, Stridor, Pain on Inspiration, Excessive Mucous Production, Change in Mucous Color, Pain with Coughing - Gastrointestinal Gastrointestinal: Abdominal Pain, Nausea, Vomiting. absent: Belching, Bloating , Cramping, Diarrhea, Excessive Flatus, Heartburn, Loose Stools, Melena - Genitourinary Genitourinary: absent: Dysuria, Pyuria - Musculoskeletal Musculoskeletal: Back Pain - Integumentary Integumentary: absent: Dry Skin - Neurological Neurological: absent: Dizziness, Headaches - Psychiatric Psychiatric: absent: Anxiety, Depression - Endocrine Endocrine: absent: Fatigue, Palpitations - Hematologic/Lymphatic Hematologic: absent: Easy Bleeding, Easy Bruising Past Patient History - Infectious Disease Hx of Infectious Diseases: None - Tetanus Immunizations Tetanus Immunization: Unknown - Past Social History Smoking Status: Heavy Smoker > 10 Cigarettes Daily Alcohol: None Drugs: Denies Home Situation {Lives}: With Family - CARDIAC Hx Cardiac Disorders: No - PULMONARY Hx Respiratory Disorders: No - NEUROLOGICAL Hx Neurological Disorder: No - HEENT Hx HEENT Problems: No - RENAL Hx Chronic Kidney Disease: No - ENDOCRINE/METABOLIC Hx Endocrine Disorders: No - HEMATOLOGICAL/ONCOLOGICAL Hx Blood Disorders: Yes Hx Anemia: Yes Hx Blood Transfusions: No - INTEGUMENTARY Hx Dermatological Problems: No - MUSCULOSKELETAL/RHEUMATOLOGICAL Hx Musculoskeletal Disorders: Yes Hx Back Pain: Yes - GASTROINTESTINAL Hx Gastrointestinal Disorders: No - GENITOURINARY/GYNECOLOGICAL Hx Genitourinary Disorders: No - PSYCHIATRIC Hx Psychophysiologic Disorder: No Hx Substance Use: No - SURGICAL HISTORY Hx Section: Yes (x 3) Hx Orthopedic Surgery: Yes (right ankle and rt thumb) - ANESTHESIA Hx Anesthesia: Yes Hx Anesthesia Reactions: Yes (panic attack) Hx Malignant Hyperthermia: No Meds Allergies/Adverse Reactions: Allergies Allergy/AdvReac Type Severity Reaction Status Date / Time morphine Allergy WHEEZING Verified 05/21/17 18:49 Physical Exam - Constitutional Appears: No Acute Distress - Head Exam Head Exam: ATRAUMATIC, NORMAL INSPECTION, NORMOCEPHALIC - Eye Exam Eye Exam: EOMI, Normal appearance, PERRL. absent: Scleral icterus Pupil Exam: NORMAL ACCOMODATION - ENT Exam ENT Exam: Mucous Membranes Moist - Neck Exam Neck exam: Positive for: Normal Inspection - Respiratory Exam Respiratory Exam: Clear to Auscultation Bilateral, NORMAL BREATHING PATTERN. absent: Rales, Rhonchi, Wheezes, Respiratory Distress, Stridor - Cardiovascular Exam Cardiovascular Exam: REGULAR RHYTHM, RRR, +S1, +S2. absent: Diastolic murmur, Gallop, Rubs, Systolic Murmur - GI/Abdominal Exam GI & Abdominal Exam: Normal Bowel Sounds, Soft. absent: Distended, Firm, Guarding, Rebound, Rigid, Tenderness - Extremities Exam Extremities exam: Positive for: normal inspection. Negative for: pedal edema, tenderness - Back Exam Back exam: NORMAL INSPECTION - Neurological Exam Neurological exam: Alert, Oriented x3 - Psychiatric Exam Psychiatric exam: Normal Affect, Normal Mood - Skin Skin Exam: Dry, Normal Color, Warm Results - Vital Signs Recent Vital Signs: Last Vital Signs Temp 97.8 F 05/21/17 11:50 Pulse 94 H 05/21/17 17:47 Resp 18 05/21/17 17:47 BP 115/58 L 05/21/17 17:47 Pulse Ox 100 05/21/17 17:47 - Labs Result Diagrams: 05/21/17 11:40 05/21/17 13:00 - EKG Data EKG Interpreted by: Myself EKG shows normal: Sinus rhythm Rate: Normal Assessment & Plan - Assessment and Plan (Free Text) Assessment: Patient is a 47 y/o with pmh of chronic back pain, and anemia presenting with intractable vomiting and epigastric pain radiating to the back and LUQ starting earlier today. Patient had basic labs including amylase and lipase with no pancreatitis. CTA was done to rule out dissection with no dissection, incidental renal cysts and non specific 1.2 cm low density lesion in the dome of left hepatic lobe. UA with positive nitrate, mod bacteria and blood but no UTI symptoms. Plan: 1) Intractable vomiting and epigastric pain likely due to gastritis due to chronic motrin. Less likely acute marla, less likely pancreatitis. - Zofran prn for nausea/vomiting - NS@ 100 cc/hr - Will start liquid diet and advance as patient tolerates - Will start protonix - tramadol prn for pain - Follow up with blood cultures. - GI consult for outpatient follow 2) Chronic back pain- Tylenol prn for pain - will hold Motrin - Consider flexeril 3) Chronic tobacco abuse - Nicotine patch 4) DVT prophylaxis: compressive devices. Patient seen, examined and case discussed with Dr Canales. - Date & Time Date: 05/21/17 Time: 18:10 <Maddie aCnales - Last Filed: 05/21/17 21:51> Results - Vital Signs Recent Vital Signs: Last Vital Signs Temp 97.8 F 05/21/17 11:50 Pulse 94 H 05/21/17 17:47 Resp 18 05/21/17 17:47 BP 115/58 L 05/21/17 17:47 Pulse Ox 100 05/21/17 17:47 - Labs Result Diagrams: 05/21/17 11:40 05/21/17 13:00 Attending/Attestation - Attestation I have personally seen and examined this patient.: Yes I have fully participated in the care of the patient.: Yes I have reviewed all pertinent clinical information: Yes Notes (Text): 05/21/17 21:45 47 year old female with past medical history of chronic back pain and anemia who presents today with complaint of epigastric pain with intractable nausea/ vomiting which started today. Admits to NSAIDs use for her back pain. Initial labs including LFTs and lipase are negative. CT abd/pelvis shows renal cysts. Although UA positive for nitrates patient denies UTI symptoms (dysuria, polyuria , fever, suprapubic pain). Continue with protonix and zofran prn. Clear liqiuid diet for now as tolerated. GI evaluation is requested; consider EGD is symptoms don't improve. Counselled on alcohol and smoking abstinence and limiting NSAID use. Maddie Canales MD Hospitalist.
[2017-05-21] MEDS: Sodium Chloride 0.9% 1,000 ML IV SCH ×2 (20:50)
[2017-05-22 02:40] VITALS: BMI 33.7
[2017-05-22] MEDS: Pantoprazole 40 mg EC Tab PO SCH (05:41)
[2017-05-22] MEDS: Sodium Chloride 0.9% 1,000 ML IV SCH ×2 (05:42)
[2017-05-22 07:51] LABS: GRAN # 4.58 (1.4-6.5); GRAN % 78.3 % (50.0-68.0); LYMPH % 17.8 % (22.0-35.0); MEAN CORPUSCULAR HEMOGLOBIN 27.4 pg (25.0-35.0); MEAN CORPUSCULAR HGB CONC 31.8 g/dl (31.0-37.0); MEAN PLATELET VOLUME 9.7 fl (7.0-11.0); MONO # 0.2 (0.1-0.6); MONO % 3.9 % (1.0-6.0); RBC 3.65 10^6/uL (3.5-6.1); WHITE BLOOD COUNT 5.9 10^3/ul (4.5-11.0)
[2017-05-22 08:17] LABS: ALB/GLOB RATIO 1.2 (1.1-1.8); ALBUMIN 3.2 g/dL (3.0-4.8); ALT/SGPT 28 U/L (7-56); AST/SGOT 18 U/L (14-36); BLOOD UREA NITROGEN 11 mg/dL (7-21); CALCIUM 8.5 mg/dL (8.4-10.5); GFR AFRICAN-AMERICAN > 60; GFR NON-AFRICAN AMERICAN > 60
[2017-05-22 09:38] VITALS: RESP 20
[2017-05-22] MEDS ORDERED: Potassium Chloride 20 mEq ER Tab PO ONE (11:19)
--- NOTE | 2017-05-22 13:14 | CARD ---
APPROVED REPORT EKG Measurement Heart [id number] <Conclusion> Normal sinus rhythm Possible Left atrial enlargement Borderline ECG
--- NOTE | 2017-05-22 14:54 | CP.PCM.PN ---
<Latisha Xie - Last Filed: 05/22/17 14:50> Subjective - Date & Time of Evaluation Date of Evaluation: 05/22/17 Time of Evaluation: 14:50 - Subjective Subjective: Latisha Xie, PGY1, Medicine Progress Note for Dr Canales: Patient seen and examined at bedside. No acute events overnight. Pt felt nauseous and had abdominal pain after soft diet at lunch. Otherwise, no fever, chills, urinary symptoms, cp, sob. Objective - Vital Signs/Intake and Output Vital Signs (last 24 hours): Temp Pulse Resp BP Pulse Ox 97.6 F 67 20 92/49 L 100 05/22/17 07:30 05/22/17 07:30 05/22/17 07:30 05/22/17 07:30 05/22/17 07:30 Intake and Output: 05/22/17 05/22/17 06:59 18:59 Intake Total 480 Balance 480 - Medications Medications: Current Medications Acetaminophen (Tylenol 325mg Tab) 650 mg PO Q4H PRN PRN Reason: Fever >100.4 F Sodium Chloride (Sodium Chloride 0.9%) 1,000 mls @ 100 mls/hr IV .Q10H [facility] Last Admin: 05/22/17 05:42 Dose: 100 mls/hr Nicotine (Nicoderm Cq) 1 patch TD DAILY [facility] Last Admin: 05/22/17 10:30 Dose: 1 patch Ondansetron HCl (Zofran Inj) 4 mg IVP Q4H PRN PRN Reason: Nausea/Vomiting Pantoprazole Sodium (Protonix Ec Tab) 40 mg PO 0600 [facility] Last Admin: 05/22/17 05:41 Dose: 40 mg Tramadol HCl (Ultram) 50 mg PO Q8H PRN PRN Reason: Pain, moderate (4-7) Last Admin: 05/22/17 10:34 Dose: 50 mg - Labs Labs: 05/22/17 07:30 05/22/17 07:30 - Constitutional Appears: Non-toxic, No Acute Distress - Head Exam Head Exam: ATRAUMATIC, NORMOCEPHALIC - Eye Exam Eye Exam: EOMI. absent: Conjunctival injection, Nystagmus, Scleral icterus Pupil Exam: NORMAL ACCOMODATION, PERRL. absent: Fixed, Irregular, Unequal - ENT Exam ENT Exam: Mucous Membranes Moist - Neck Exam Neck Exam: Full ROM - Respiratory Exam Respiratory Exam: Clear to Ausculation Bilateral, NORMAL BREATHING PATTERN. absent: Accessory Muscle Use, Chest Wall Tenderness, Decreased Breath Sounds, Rhonchi, Wheezes, Respiratory Distress - Cardiovascular Exam Cardiovascular Exam: RRR, +S1, +S2. absent: Murmur - GI/Abdominal Exam GI & Abdominal Exam: Soft, Tenderness (mildy ttp diffusely), Normal Bowel Sounds. absent: Distended, Firm, Guarding, Rigid, Mass, Organomegaly - Extremities Exam Extremities Exam: Normal Inspection. absent: Calf Tenderness, Pedal Edema - Back Exam Back Exam: NORMAL INSPECTION - Neurological Exam Neurological Exam: Alert, Awake, Oriented x3 - Psychiatric Exam Psychiatric exam: Normal Affect, Normal Mood - Skin Skin Exam: Dry, Normal Color, Warm Assessment and Plan - Assessment and Plan (Free Text) Assessment: 47 y/o female with pmh of chronic back pain, and anemia presenting with intractable vomiting and epigastric pain: Intractable vomiting and epigastric pain: 2/2 gastritis (from chronic NSAID use) vs PUD, ruled out pancreatitis and cholecystectomy - Zofran prn for nausea/vomiting - Normal lipase and amylase - NS@ 100 cc/hr - CT imaging negative for dissection, appendicitis, pancreatitis/cholecystitis. incidental renal cysts and non specific 1.2 cm low density lesion in the dome of left hepatic lobe. - Tolerating CLD well. will advance to full liquid diet. Could not tolerate soft diet today. - Protonix - tramadol prn for pain - GI consulted. F/u recs. Chronic back pain: - Tylenol prn for pain - will hold Motrin - Consider flexeril Chronic tobacco abuse: - Nicotine patch DVT prophylaxis: compressive devices. GI ppx: Protonix Patient seen, examined and case discussed with Dr Canales. <Maddie Canales - Last Filed: 05/22/17 15:52> Objective - Vital Signs/Intake and Output Vital Signs (last 24 hours): Temp Pulse Resp BP Pulse Ox 97.6 F 67 20 92/49 L 100 05/22/17 07:30 05/22/17 07:30 05/22/17 07:30 05/22/17 07:30 05/22/17 07:30 Intake and Output: 05/22/17 05/22/17 06:59 18:59 Intake Total 120 Balance 120 - Medications Medications: Current Medications Acetaminophen (Tylenol 325mg Tab) 650 mg PO Q4H PRN PRN Reason: Fever >100.4 F Sodium Chloride (Sodium Chloride 0.9%) 1,000 mls @ 100 mls/hr IV .Q10H [facility] Last Admin: 05/22/17 05:42 Dose: 100 mls/hr Nicotine (Nicoderm Cq) 1 patch TD DAILY [facility] Last Admin: 05/22/17 10:30 Dose: 1 patch Ondansetron HCl (Zofran Inj) 4 mg IVP Q4H PRN PRN Reason: Nausea/Vomiting Pantoprazole Sodium (Protonix Ec Tab) 40 mg PO 0600 [facility] Last Admin: 05/22/17 05:41 Dose: 40 mg Tramadol HCl (Ultram) 50 mg PO Q8H PRN PRN Reason: Pain, moderate (4-7) Last Admin: 05/22/17 10:34 Dose: 50 mg Attending/Attestation - Attestation I have personally seen and examined this patient.: Yes I have fully participated in the care of the patient.: Yes I have reviewed all pertinent clinical information, including history, physical exam and plan: Yes Notes (Text): 05/22/17 15:49 47 year old female with past medical history of chronic back pain and anemia who presented with complaint of epigastric pain with intractable nausea/ vomiting. Initial labs including LFTs and lipase were negative. CT abd/pelvis showed renal cysts. She does admit to NSAIDs use for history of migraines. Although UA positive for nitrates patient denies UTI symptoms (dysuria, polyuria , fever, suprapubic pain). Continue with protonix and zofran prn. She was tolerating liquid diet, however did not tolerate diet advancement this afternoon. Will scale diet back to liquids and follow up with GI recommendations. Consider EGD is symptoms don't improve. Counselled on alcohol and smoking abstinence and limiting NSAID use. Maddie Canales MD Hospitalist.
[2017-05-22 18:54] VITALS: O2SAT 99
--- NOTE | 2017-05-22 21:05 | CON ---
DATE: 05/22/2017 GASTROENTEROLOGY CONSULTATION REQUESTING PHYSICIAN: Dr. Canales. 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 The patient states that the vomiting began suddenly after she came to work yesterday. This was followed by some mid abdominal pain. She has not had any further vomiting since her hospitalization. CT angiography of the chest, which included the abdomen, did not show any evidence of pulmonary embolus or intestinal obstruction. She feels better today without any further nausea or vomiting. PAST MEDICAL HISTORY: Notable for chronic back pain and anemia. PAST SURGICAL HISTORY: Notable for . SOCIAL HISTORY: She smokes up to half pack of cigarettes per day. She consumes alcohol on a social basis. FAMILY HISTORY: Her brother was diagnosed with colon cancer in his 40s. Mother had heart disease and congestive heart failure. Father had pneumonia. REVIEW OF SYSTEMS: A 14-point review of systems is notable for vomiting and abdominal pain. MEDICATIONS AT HOME: Include Motrin and a muscle relaxant. PHYSICAL EXAMINATION: GENERAL: Middle-aged female, lying in bed, in no acute distress. VITAL SIGNS: Reveal temperature of 97.6, blood pressure 92/49, and heart rate 67. HEENT: Reveal sclerae to be white. Conjunctivae pink. NECK: Supple. CHEST: Reveals lungs to be clear. HEART: Exam reveals a regular rate and rhythm. ABDOMEN: Soft, protuberant, nontender, no mass. EXTREMITIES: Show no edema. LABORATORY DATA: Revealed white blood cell count 5.9, hemoglobin 10. Chemistries reveal potassium of 3.3. AST, ALT, and alk phos were normal. Amylase was slightly elevated at 127, lipase was 215. IMPRESSION: A 47-year-old female with; 1. Intractable vomiting with CT scan negative for intestinal obstruction. Her symptoms have essentially resolved. She denies any further vomiting. Her abdominal pain has improved. She is tolerating solid foods. 2. Chronic anemia. 3. Family history of colon cancer. RECOMMENDATIONS: 1. The patient is stable from GI and can be discharged home with outpatient followup. 2. 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 3. She will need an elective colonoscopy preferably sooner than later given the family history of colon cancer. Vance Silva MD
[2017-05-23] MEDS: Pantoprazole 40 mg EC Tab PO SCH (06:28)
[2017-05-23 07:04] LABS: BASO # 0.01 K/mm3 (0.0-2.0); BASO % 0.1 % (0.0-3.0); EOS # 0.1 (0.0-0.7); EOS % 0.7 % (1.5-5.0); GRAN # 4.52 (1.4-6.5); GRAN % 63.2 % (50.0-68.0); LYMPH # 2.2 (1.2-3.4); LYMPH % 31.2 % (22.0-35.0); MEAN CELL VOLUME 86.6 fl (80.0-105.0); MEAN CORPUSCULAR HEMOGLOBIN 27.2 pg (25.0-35.0); MEAN CORPUSCULAR HGB CONC 31.4 g/dl (31.0-37.0); MEAN PLATELET VOLUME 10.4 fl (7.0-11.0); MONO # 0.3 (0.1-0.6); MONO % 4.8 % (1.0-6.0); RBC 3.67 10^6/uL (3.5-6.1); RED CELL DISTRIBUTION WIDTH 14.2 % (11.5-14.5); WHITE BLOOD COUNT 7.2 10^3/ul (4.5-11.0)
[2017-05-23 07:39] VITALS: BP 117/68; PULSE 56; TEMP 97.8
[2017-05-23 07:42] LABS: ALBUMIN 2.9 g/dL (3.0-4.8); ALT/SGPT 22 U/L (7-56); AST/SGOT 22 U/L (14-36); BLOOD UREA NITROGEN 11 mg/dL (7-21); CALCIUM 8.5 mg/dL (8.4-10.5); GFR AFRICAN-AMERICAN > 60; GFR NON-AFRICAN AMERICAN > 60
[2017-05-23] MEDS: Sodium Chloride 0.9% 1,000 ML IV SCH (09:34)
--- NOTE | 2017-05-23 13:46 | CP.PCM.DIS ---
<Latisha Xie - Last Filed: 05/23/17 19:16> Provider - Provider Date of Admission: 05/22/17 14:52 Attending physician: Maddie Canales MD Primary care physician: Bronwyn Oneal MD Consults: GLEN Silva Time Spent in preparation of Discharge (in minutes): 35 Diagnosis - Discharge Diagnosis (1) Gastritis Status: Acute (2) GERD (gastroesophageal reflux disease) Status: Acute Hospital Course - Lab Results Lab Results: Most Recent Lab Values WBC 7.2 10^3/ul (4.5-11.0) D 05/23/17 06:20 RBC 3.67 10^6/uL (3.5-6.1) 05/23/17 06:20 Hgb 10.0 g/dL (12.0-16.0) L 05/23/17 06:20 Hct 31.8 % (36.0-48.0) L 05/23/17 06:20 MCV 86.6 fl (80.0-105.0) 05/23/17 06:20 MCH 27.2 pg (25.0-35.0) 05/23/17 06:20 MCHC 31.4 g/dl (31.0-37.0) 05/23/17 06:20 RDW 14.2 % (11.5-14.5) 05/23/17 06:20 Plt Count 233 10^3/uL (120.0-450.0) 05/23/17 06:20 MPV 10.4 fl (7.0-11.0) 05/23/17 06:20 Gran % 63.2 % (50.0-68.0) 05/23/17 06:20 Lymph % (Auto) 31.2 % (22.0-35.0) 05/23/17 06:20 Aurora % (Auto) 4.8 % (1.0-6.0) 05/23/17 06:20 Eos % (Auto) 0.7 % (1.5-5.0) L 05/23/17 06:20 Baso % (Auto) 0.1 % (0.0-3.0) 05/23/17 06:20 Gran # 4.52 (1.4-6.5) 05/23/17 06:20 Lymph # (Auto) 2.2 (1.2-3.4) 05/23/17 06:20 Aurora # (Auto) 0.3 (0.1-0.6) 05/23/17 06:20 Eos # (Auto) 0.1 (0.0-0.7) 05/23/17 06:20 Baso # (Auto) 0.01 K/mm3 (0.0-2.0) 05/23/17 06:20 Sodium 141 mmol/L (132-148) 05/23/17 06:20 Potassium 3.6 mmol/L (3.6-5.0) 05/23/17 06:20 Chloride 111 mmol/L (98-107) H 05/23/17 06:20 Carbon Dioxide 24 mmol/L (21-33) 05/23/17 06:20 Anion Gap 10 (10-20) 05/23/17 06:20 BUN 11 mg/dL (7-21) 05/23/17 06:20 Creatinine 0.7 mg/dl (0.7-1.2) 05/23/17 06:20 Est GFR ( Amer) > 60 05/23/17 06:20 Est GFR (Non-Af Amer) > 60 05/23/17 06:20 Random Glucose 85 mg/dL (70-110) 05/23/17 06:20 Calcium 8.5 mg/dL (8.4-10.5) 05/23/17 06:20 Total Bilirubin 0.3 mg/dL (0.2-1.3) 05/23/17 06:20 AST 22 U/L (14-36) 05/23/17 06:20 ALT 22 U/L (7-56) 05/23/17 06:20 Alkaline Phosphatase 50 U/L (38-126) 05/23/17 06:20 Total Protein 5.7 g/dL (5.8-8.3) L 05/23/17 06:20 Albumin 2.9 g/dL (3.0-4.8) L 05/23/17 06:20 Globulin 2.8 gm/dL 05/23/17 06:20 Albumin/Globulin Ratio 1.0 (1.1-1.8) L 05/23/17 06:20 Amylase 127 U/L (35-125) H 05/21/17 13:00 Lipase 215 U/L (23-300) 05/21/17 13:00 Urine Color Light red (YELLOW) 05/21/17 11:34 Urine Appearance Cloudy (CLEAR) 05/21/17 11:34 Urine pH 6.0 (4.7-8.0) 05/21/17 11:34 Ur Specific Gravel Switch >= 1.030 (1.005-1.035) 05/21/17 11:34 Urine Protein 100 mg/dL (<30 mg/dL) H 05/21/17 11:34 Urine Glucose (UA) Negative mg/dL (NEGATIVE) 05/21/17 11:34 Urine Ketones Trace mg/dL (NEGATIVE) H 05/21/17 11:34 Urine Blood Large (NEGATIVE) H 05/21/17 11:34 Urine Nitrate Positive (NEGATIVE) H 05/21/17 11:34 Urine Bilirubin Small (NEGATIVE) H 05/21/17 11:34 Urine Urobilinogen 0.2 E.U./dL (<1 E.U./dL) 05/21/17 11:34 Ur Leukocyte Esterase Negative Yang/uL (NEGATIVE) 05/21/17 11:34 Urine RBC Tntc /hpf (0-2) 05/21/17 11:34 Urine WBC 0 - 2 /hpf (0-6) 05/21/17 11:34 Ur Epithelial Cells 6 - 8 /hpf (0-5) 05/21/17 11:34 Urine Bacteria Mod (NEG) 05/21/17 11:34 Influenza Typ A,B (EIA) Negative for flu a/b (NEGATIVE) 05/21/17 13:40 - Hospital Course Hospital Course: 47 year old female with PMH of chronic back pain, and anemia presents to ED with intractable vomiting and epigastric pain. Pt is chronic Motrin user due to her headaches. Patient had basic labs including amylase and lipase with no pancreatitis. CTA was done to rule out dissection with no dissection; found to have incidental renal cysts and non specific 1.2 cm low density lesion in the dome of left hepatic lobe. UA with positive nitrate, mod bacteria and blood but no UTI symptoms. Pt admitted for gastritis, GERD. Pt started on protonix, zofran. Pt tolerated clear liquid diet, then to soft diet with minimal pain and no emesis episodes. GI consulted, recommends outpatient colonoscopy as pt has family history of colon cancer. Pt to follow up with GI outpatient. Pt advised to avoid NSAIDs for pain, but to use Tylenol instead. Pt given PPI for heartburn symptoms. Discharge Exam - Head Exam Head Exam: ATRAUMATIC, NORMOCEPHALIC - Eye Exam Eye Exam: EOMI, PERRL. absent: Conjunctival injection, Scleral icterus Pupil Exam: PERRL. absent: Fixed, Unequal - ENT Exam ENT Exam: Mucous Membranes Moist - Neck Exam Neck exam: Full Rom - Respiratory Exam Respiratory Exam: Clear to PA & Lateral, NORMAL BREATHING PATTERN. absent: Accessory Muscle Use, Rales, Rhonchi, Wheezes - Cardiovascular Exam Cardiovascular Exam: RRR, +S1, +S2. absent: Systolic Murmur - GI/Abdominal Exam GI & Abdominal Exam: Normal Bowel Sounds, Soft. absent: Distended, Guarding, Rigid, Tenderness - Extremities Exam Extremities exam: normal inspection - Neurological Exam Neurological exam: Alert, Oriented x3 - Psychiatric Exam Psychiatric exam: Normal Affect, Normal Mood - Skin Skin Exam: Dry, Normal Color, Warm Discharge Plan - Discharge Medications Prescriptions: Pantoprazole [Protonix EC Tab] 40 mg PO 0600 30 Days ect - Follow Up Plan Condition: FAIR Disposition: HOME/ ROUTINE Instructions: Gastritis (DC), Pneumococcal Vaccine for Adults (DC), Influenza Vaccine (DC), Gastroesophageal Reflux Disease (DC) Additional Instructions: - Follow up with Dr Silva in 1 week for an elective colonoscopy and a possible EGD to evaluate for your vomiting/nausea symptoms. - Take Protonix for heart burn. - Start with full liquids/soft diet at home and slowly resume to regular diet. - Avoid foods and medications like NSAIDs (Ibuprofen) that exacerbate gastritis. - Take Tylenol for headaches/pain. - Follow up with PMD in 1 week. - Return to ER if any concerns. Referrals: Vance Silva MD [Staff Provider] - Bronwyn Oneal MD [Primary Care Provider] - <Maddie Canales - Last Filed: 05/24/17 08:08> Provider - Provider Date of Admission: 05/21/17 16:52 Attending physician: Maddie Canales MD Primary care physician: Bronwyn Oneal MD Hospital Course - Lab Results Lab Results: Most Recent Lab Values WBC 7.2 10^3/ul (4.5-11.0) D 05/23/17 06:20 RBC 3.67 10^6/uL (3.5-6.1) 05/23/17 06:20 Hgb 10.0 g/dL (12.0-16.0) L 05/23/17 06:20 Hct 31.8 % (36.0-48.0) L 05/23/17 06:20 MCV 86.6 fl (80.0-105.0) 05/23/17 06:20 MCH 27.2 pg (25.0-35.0) 05/23/17 06:20 MCHC 31.4 g/dl (31.0-37.0) 05/23/17 06:20 RDW 14.2 % (11.5-14.5) 05/23/17 06:20 Plt Count 233 10^3/uL (120.0-450.0) 05/23/17 06:20 MPV 10.4 fl (7.0-11.0) 05/23/17 06:20 Gran % 63.2 % (50.0-68.0) 05/23/17 06:20 Lymph % (Auto) 31.2 % (22.0-35.0) 05/23/17 06:20 Aurora % (Auto) 4.8 % (1.0-6.0) 05/23/17 06:20 Eos % (Auto) 0.7 % (1.5-5.0) L 05/23/17 06:20 Baso % (Auto) 0.1 % (0.0-3.0) 05/23/17 06:20 Gran # 4.52 (1.4-6.5) 05/23/17 06:20 Lymph # (Auto) 2.2 (1.2-3.4) 05/23/17 06:20 Aurora # (Auto) 0.3 (0.1-0.6) 05/23/17 06:20 Eos # (Auto) 0.1 (0.0-0.7) 05/23/17 06:20 Baso # (Auto) 0.01 K/mm3 (0.0-2.0) 05/23/17 06:20 Sodium 141 mmol/L (132-148) 05/23/17 06:20 Potassium 3.6 mmol/L (3.6-5.0) 05/23/17 06:20 Chloride 111 mmol/L (98-107) H 05/23/17 06:20 Carbon Dioxide 24 mmol/L (21-33) 05/23/17 06:20 Anion Gap 10 (10-20) 05/23/17 06:20 BUN 11 mg/dL (7-21) 05/23/17 06:20 Creatinine 0.7 mg/dl (0.7-1.2) 05/23/17 06:20 Est GFR ( Amer) > 60 05/23/17 06:20 Est GFR (Non-Af Amer) > 60 05/23/17 06:20 Random Glucose 85 mg/dL (70-110) 05/23/17 06:20 Calcium 8.5 mg/dL (8.4-10.5) 05/23/17 06:20 Total Bilirubin 0.3 mg/dL (0.2-1.3) 05/23/17 06:20 AST 22 U/L (14-36) 05/23/17 06:20 ALT 22 U/L (7-56) 05/23/17 06:20 Alkaline Phosphatase 50 U/L (38-126) 05/23/17 06:20 Total Protein 5.7 g/dL (5.8-8.3) L 05/23/17 06:20 Albumin 2.9 g/dL (3.0-4.8) L 05/23/17 06:20 Globulin 2.8 gm/dL 05/23/17 06:20 Albumin/Globulin Ratio 1.0 (1.1-1.8) L 05/23/17 06:20 Amylase 127 U/L (35-125) H 05/21/17 13:00 Lipase 215 U/L (23-300) 05/21/17 13:00 Urine Color Light red (YELLOW) 05/21/17 11:34 Urine Appearance Cloudy (CLEAR) 05/21/17 11:34 Urine pH 6.0 (4.7-8.0) 05/21/17 11:34 Ur Specific Gravel Switch >= 1.030 (1.005-1.035) 05/21/17 11:34 Urine Protein 100 mg/dL (<30 mg/dL) H 05/21/17 11:34 Urine Glucose (UA) Negative mg/dL (NEGATIVE) 05/21/17 11:34 Urine Ketones Trace mg/dL (NEGATIVE) H 05/21/17 11:34 Urine Blood Large (NEGATIVE) H 05/21/17 11:34 Urine Nitrate Positive (NEGATIVE) H 05/21/17 11:34 Urine Bilirubin Small (NEGATIVE) H 05/21/17 11:34 Urine Urobilinogen 0.2 E.U./dL (<1 E.U./dL) 05/21/17 11:34 Ur Leukocyte Esterase Negative Yang/uL (NEGATIVE) 05/21/17 11:34 Urine RBC Tntc /hpf (0-2) 05/21/17 11:34 Urine WBC 0 - 2 /hpf (0-6) 05/21/17 11:34 Ur Epithelial Cells 6 - 8 /hpf (0-5) 05/21/17 11:34 Urine Bacteria Mod (NEG) 05/21/17 11:34 Influenza Typ A,B (EIA) Negative for flu a/b (NEGATIVE) 05/21/17 13:40 Attending/Attestation - Attestation I have personally seen and examined this patient.: Yes I have fully participated in the care of the patient.: Yes I have reviewed all pertinent clinical information, including history, physical exam and plan: Yes Notes (Text): 05/23/17 47 year old female with past medical history of chronic back pain and anemia who presented with complaint of epigastric pain with intractable nausea/ vomiting. Initial labs including LFTs and lipase were negative. CT abd/pelvis showed renal cysts. She did admit to NSAIDs use for history of migraines. Although UA positive for nitrates patient denies UTI symptoms (dysuria, polyuria , fever, suprapubic pain). Ucx was contaminated. Her symptoms improved with protonix and zofran prn. Her diet was advanced as tolerated. She was seen by GI who recommended outpatient colonoscopy +/- EGD. Patient is discharged home to follow up with her pmd. Follow up with GI for elective colonoscopy +/- EGD. Continue with diet as tolerated at home and advance. Counselled on alcohol and smoking abstinence and limiting NSAID use. Maddie Canales MD Hospitalist.
--- NOTE | 2017-05-23 18:03 | PN ---
DATE: 05/23/2017 SUBJECTIVE: The patient is lying in bed. She has not had any further nausea and vomiting. She denies abdominal pain. She is tolerating solid foods. PHYSICAL EXAMINATION: VITAL SIGNS: Reveal temperature of 97.8, blood pressure 117/68, heart rate is 56. HEENT: Reveal sclerae to be white. Conjunctivae pink. NECK: Supple. CHEST: Lungs are clear. HEART: Reveals a regular rate and rhythm. ABDOMEN: Soft, nontender. No mass. EXTREMITIES: Show no edema. LABORATORY DATA: Reveal hemoglobin of 10. IMPRESSION: 1. Probable gastroenteritis with intractable vomiting, which has resolved. 2. Chronic anemia. 3. Family history of colon cancer. RECOMMENDATIONS: Patient is stable from GI. She has been instructed to follow up with her medical doctor for referral for colonoscopy given family member with colon cancer in the 40s. Vance Silva MD
== END 2017-05-23 16:10 | disposition home or self-care (01) ==
LOC: ED 10:16 → ERH 16:52 → 5RNO 18:16 → OBSVTOIN 05-22 14:52 → INTOOBSV 05-22 14:52
PROVIDERS: ADMIT Hospitalist; ATTEND Internal Medicine
DX: K29.70 Gastritis, unspecified, without bleeding (principal); K21.9 Gastro-esophageal reflux disease without esophagitis; G89.29 Other chronic pain; D64.9 Anemia, unspecified; M54.9 Dorsalgia, unspecified; G43.909 Migraine, unspecified, not intractable, without status migrainosus; N28.1 Cyst of kidney, acquired; F17.210 Nicotine dependence, cigarettes, uncomplicated; Z82.49 Family history of ischemic heart disease and other diseases of the circulatory system; Z80.0 Family history of malignant neoplasm of digestive organs
CPT/HCPCS: 36415; 71045; 71275; 74175; 80053; 81001; 82150; 83690; 85025; 87086; 87804; 93005; 96361; 96374; 96375; 96376; 99285; G0378; J1200; J2270; J2405; J2930; J7040; Q9967

== ENCOUNTER 2017-06-18 10:00 | Emergency (ER) | payer OTHER ==
[2017-06-18 10:24] VITALS: BMI 32.4
[2017-06-18 11:03] VITALS: RESP 16; TEMP 98.7
--- NOTE | 2017-06-18 11:43 | ED PDOC ---
Arrival/HPI - General Chief Complaint: ENT Problem Time Seen by Provider: 06/18/17 10:05 Historian: Patient - History of Present Illness Narrative History of Present Illness (Text): 06/18/17 11:41 47yo female who present with complaint of sore throat since this morning. she describes it as "choking sensation". Reports odynophagia. She denies dysphagia , hoarseness, tongue swelling, rash, nausea, vomiting, abdominal pain, any inciting factors for allergy. Past Medical History - Provider Review Nursing Documentation Reviewed: Yes - Past History Past History: No Previous - Infectious Disease Hx of Infectious Diseases: None - Tetanus Immunization Tetanus Immunization: Unknown - Cardiac Hx Cardiac Disorders: No - Pulmonary Hx Respiratory Disorders: No - Neurological Hx Neurological Disorder: No - HEENT Hx HEENT Disorder: No - Renal Hx Renal Disorder: No - Endocrine/Metabolic Hx Endocrine Disorders: No - Hematological/Oncological Hx Blood Disorders: Yes Hx Anemia: Yes - Integumentary Hx Dermatological Disorder: No - Musculoskeletal/Rheumatological Hx Musculoskeletal Disorders: Yes Hx Back Pain: Yes Hx Falls: No - Gastrointestinal Hx Gastrointestinal Disorders: No - Genitourinary/Gynecological Hx Genitourinary Disorders: No - Psychiatric Hx Psychophysiologic Disorder: No Hx Substance Use: No - Surgical History Hx Orthopedic Surgery: Yes (right ankle and rt thumb) - Anesthesia Hx Anesthesia: Yes Hx Anesthesia Reactions: Yes (panic attack) Hx Malignant Hyperthermia: No - Suicidal Assessment Feels Threatened In Home Enviroment: No Family/Social History - Physician Review Nursing Documentation Reviewed: Yes Family/Social History: Unknown Family HX Smoking Status: Never Smoked Hx Alcohol Use: No Hx Substance Use: No Hx Substance Use Treatment: No Allergies/Home Meds Allergies/Adverse Reactions: Allergies morphine Allergy (Verified 06/18/17 10:59) WHEEZING Review of Systems - Physician Review All systems were reviewed & negative as marked: Yes - Review of Systems Constitutional: Normal Eyes: Normal ENT: Sore Throat Respiratory: Normal Cardiovascular: Normal Gastrointestinal: Normal Genitourinary Female: Normal Musculoskeletal: Normal Skin: Normal Neurological: Normal Endocrine: Normal Hemo/Lymphatic: Normal Psychiatric: Normal Physical Exam Vital Signs Reviewed: Yes Vital Signs Temp Pulse Resp BP Pulse Ox 06/18/17 11:00 98.7 F 76 16 116/80 97 Temperature: Afebrile Blood Pressure: Normal Pulse: Regular Respiratory Rate: Normal Appearance: Positive for: Well-Appearing, Non-Toxic, Comfortable Pain Distress: None Mental Status: Positive for: Alert and Oriented X 3 - Systems Exam Head: Present: Atraumatic, Normocephalic Pupils: Present: PERRL Extroacular Muscles: Present: EOMI Conjunctiva: Present: Normal Mouth: Present: Moist Mucous Membranes Pharnyx: Present: ERYTHEMA. No: EXUDATE, TONSILS ENLARGED, Peritonsilar Swelling, Uvular Deviation, Muffled/Hoarse Voice, Strider, Soft Palate/Uvular Edema Neck: Present: Normal Range of Motion Respiratory/Chest: Present: Clear to Auscultation, Good Air Exchange. No: Respiratory Distress, Accessory Muscle Use Cardiovascular: Present: Regular Rate and Rhythm, Normal S1, S2. No: Murmurs Abdomen: Present: Normal Bowel Sounds. No: Tenderness, Distention, Peritoneal Signs Back: Present: Normal Inspection Upper Extremity: Present: Normal Inspection. No: Cyanosis, Edema Lower Extremity: Present: Normal Inspection. No: Edema Neurological: Present: GCS=15, CN II-XII Intact, Speech Normal Skin: Present: Warm, Dry, Normal Color. No: Rashes Psychiatric: Present: Alert, Oriented x 3, Normal Insight, Normal Concentration Medical Decision Making - Lab Interpretations Lab Results: Lab Results 06/18/17 11:30: Grp A Beta Strep Ag Negative - Medication Orders Current Medication Orders: Discontinued Medications Famotidine (Pepcid) 20 mg PO STAT STA Stop: 06/18/17 10:24 Last Admin: 06/18/17 12:25 Dose: 20 mg Prednisone (Prednisone Tab) 40 mg PO STAT STA Stop: 06/18/17 10:24 Last Admin: 06/18/17 12:26 Dose: 40 mg Disposition/Present on Arrival - Present on Arrival Any Indicators Present on Arrival: No History of DVT/PE: No History of Uncontrolled Diabetes: No Urinary Catheter: No History of Decub. Ulcer: No History Surgical Site Infection Following: None - Disposition Have Diagnosis and Disposition been Completed?: Yes Diagnosis: Sore throat Disposition: HOME/ ROUTINE Disposition Time: 12:50 Patient Plan: Discharge Condition: STABLE Discharge Instructions (ExitCare): Sore Throat in Adults Additional Instructions: Follow up with your doctor Return to ED for any new or worsening symptoms Prescriptions: Loratadine [Claritin] 10 mg PO DAILY #30 tab Pectin [Throat Drops] 6 mg MM BID #30 lozenge Forms: [facility] ([place] Citizen)
[2017-06-18 13:33] VITALS: BP 124/87; PULSE 71; O2SAT 100
== END 2017-06-18 13:33 | disposition home or self-care (01) ==
LOC: ED 10:00
DX: J02.9 Acute pharyngitis, unspecified (principal)

== ENCOUNTER 2017-10-21 13:19 | Emergency (ER) | payer OTHER ==
[2017-10-21 14:40] VITALS: BMI 31.9
--- NOTE | 2017-10-21 14:54 | ED PDOC ---
Arrival/HPI - General Time Seen by Provider: 10/21/17 14:31 Historian: Patient - History of Present Illness Narrative History of Present Illness (Text): 10/21/17 14:43 47 year old female, with no significant past medical history and is an employee of [employer], presents to the Emergency department for right foot discomfort since 11 am this morning. Patient states she was at work this morning when a metal cup fell on her right foot causing immediate discomfort and tightness to the area. Patient informs mild difficulty ambulating but is able to bare weight. Patient denies any numbness, weakness, fever, chills, nausea, vomiting, diarrhea, abdominal pain, chest pain, shortness of breath or any other complaints. Patient presents to the Emergency department for medical evaluation. Time/Duration: 4-6 hours Symptom Onset: Sudden Symptom Course: Unchanged Quality: Aching Activities at Onset: Light Context: Work Past Medical History - Provider Review Nursing Documentation Reviewed: Yes - Past History Past History: No Previous - Infectious Disease Hx of Infectious Diseases: None - Tetanus Immunization Tetanus Immunization: Unknown - Cardiac Hx Cardiac Disorders: No - Pulmonary Hx Respiratory Disorders: No - Neurological Hx Neurological Disorder: No - HEENT Hx HEENT Disorder: No - Renal Hx Renal Disorder: No - Endocrine/Metabolic Hx Endocrine Disorders: No - Hematological/Oncological Hx Blood Disorders: Yes Hx Anemia: Yes - Integumentary Hx Dermatological Disorder: No - Musculoskeletal/Rheumatological Hx Musculoskeletal Disorders: Yes Hx Back Pain: Yes Hx Falls: No - Gastrointestinal Hx Gastrointestinal Disorders: No - Genitourinary/Gynecological Hx Genitourinary Disorders: No - Psychiatric Hx Psychophysiologic Disorder: No Hx Substance Use: No - Surgical History Hx Orthopedic Surgery: Yes (right ankle and rt thumb) - Anesthesia Hx Anesthesia: Yes Hx Anesthesia Reactions: Yes (panic attack) Hx Malignant Hyperthermia: No - Suicidal Assessment Feels Threatened In Home Enviroment: No Family/Social History - Physician Review Nursing Documentation Reviewed: Yes Family/Social History: No Known Family HX Smoking Status: Never Smoked Hx Alcohol Use: No Hx Substance Use: No Hx Substance Use Treatment: No Allergies/Home Meds Allergies/Adverse Reactions: Allergies morphine Allergy (Verified 10/21/17 14:36) WHEEZING Review of Systems - Physician Review All systems were reviewed & negative as marked: Yes - Review of Systems Constitutional: Normal. absent: Fevers Eyes: Normal ENT: Normal Respiratory: Normal. absent: SOB Cardiovascular: Normal. absent: Chest Pain Gastrointestinal: Normal. absent: Abdominal Pain, Diarrhea, Nausea, Vomiting Genitourinary Female: Normal Musculoskeletal: Other (right foot discomfort) Skin: Normal Neurological: Normal Endocrine: Normal Hemo/Lymphatic: Normal Psychiatric: Normal Physical Exam Vital Signs Reviewed: Yes Vital Signs Temp Pulse Resp BP Pulse Ox 10/21/17 16:41 97.8 F 78 16 112/69 99 10/21/17 14:42 98.7 F 75 18 128/93 H 98 Temperature: Afebrile Blood Pressure: Normal Pulse: Regular Respiratory Rate: Normal Appearance: Positive for: Well-Appearing, Non-Toxic, Comfortable Pain Distress: None Mental Status: Positive for: Alert and Oriented X 3 - Systems Exam Head: Present: Atraumatic, Normocephalic Pupils: Present: PERRL Extroacular Muscles: Present: EOMI Conjunctiva: Present: Normal Neck: Present: Normal Range of Motion Respiratory/Chest: Present: Clear to Auscultation, Good Air Exchange. No: Respiratory Distress, Accessory Muscle Use Cardiovascular: Present: Regular Rate and Rhythm, Normal S1, S2. No: Murmurs Abdomen: No: Tenderness, Distention, Peritoneal Signs Back: Present: Normal Inspection Upper Extremity: Present: Normal Inspection. No: Cyanosis, Edema Lower Extremity: Present: Normal Inspection, NORMAL PULSES, Normal ROM, Swelling (mild swelling to right foot), Neurovascularly Intact, Other (plantar flexion and dorsiflexion intact ). No: Edema, Cyanosis, Erythema Neurological: Present: GCS=15, CN II-XII Intact, Speech Normal Skin: Present: Warm, Dry, Normal Color. No: Rashes Psychiatric: Present: Alert, Oriented x 3, Normal Insight, Normal Concentration Medical Decision Making ED Course and Treatment: 10/21/17 14:42 Impression: 47 year old female presents to the Emergency department for right foot discomfort since 11am. Plan: -- Motrin -- X-ray of right foot -- Reassess and disposition Prior Visits: Notes and results from previous visits were reviewed. Progress Notes: 10/21/17 15:45 X-ray of right foot reviewed by radiologist, shows no acute findings. - RAD Interpretation Radiology Orders: 10/21/17 14:42 FOOT RIGHT 3 VIEWS ROUTINE [RAD] Stat Travel Accommodations Rater: Radiologist - Medication Orders Current Medication Orders: Discontinued Medications Ibuprofen (Motrin Tab) 600 mg PO STAT STA Stop: 10/21/17 14:43 Last Admin: 10/21/17 15:08 Dose: 600 mg Re-Assess: VIKY Pain/Vitals Document 10/21/17 16:08 [facility] (Rec: 10/21/17 17:05 [facility]-[id number]) Pain Reassessment Is This A Pain ReAssessment? Yes Presence of Pain Presence of Pain No - Scribe Statement The provider has reviewed the documentation as recorded by the Scribe Frank Monroe. All medical record entries made by the Scribe were at my direction and personally dictated by me. I have reviewed the chart and agree that the record accurately reflects my personal performance of the history, physical exam, medical decision making, and the department course for this patient. I have also personally directed, reviewed, and agree with the discharge instructions and disposition. Disposition/Present on Arrival - Present on Arrival Any Indicators Present on Arrival: No History of DVT/PE: No History of Uncontrolled Diabetes: No Urinary Catheter: No History Surgical Site Infection Following: None - Disposition Have Diagnosis and Disposition been Completed?: Yes Diagnosis: Contusion Disposition: HOME/ ROUTINE Disposition Time: 16:41 Condition: GOOD Discharge Instructions (ExitCare): Contusion (DC) Referrals: Bronwyn Oneal MD [Primary Care Provider] - Follow up with primary Forms: WORK NOTE
--- NOTE | 2017-10-21 15:31 | RAD ---
PROCEDURE: Right Foot Radiographs. HISTORY: Posttraumatic foot pain and swelling COMPARISON: None. FINDINGS: BONES: Normal. No fracture. JOINTS: Normal. SOFT TISSUES: Normal. OTHER FINDINGS: Orthopedic hardware identified distal tibia and fibula. IMPRESSION: No acute findings related to/accounting for the clinical presentation.
[2017-10-21 16:44] VITALS: BP 112/69; PULSE 78; RESP 16; TEMP 97.8; O2SAT 99
== END 2017-10-21 16:43 | disposition home or self-care (01) ==
LOC: ED 13:19
DX: S90.31XA Contusion of right foot, initial encounter (principal); W22.8XXA Striking against or struck by other objects, initial encounter; Y92.238 Other place in hospital as the place of occurrence of the external cause; Y99.0 Civilian activity done for income or pay